=== PATIENT | male | born 1960 | race American Indian/Alaskan Native ===

== ENCOUNTER 2016-12-14 11:09 | Day surgery (SDC) | payer OTHER ==
[2016-12-14 12:14] LABS: INR 1.18 (0.87-1.13)
[2016-12-14 12:15] LABS: Partial Thromboplastin Time 41.5 Sec. (24.2-36.6)
[2016-12-14 12:26] VITALS: BP 105/59
== END 2016-12-14 14:00 | disposition home or self-care (01) ==
LOC: CATHLABREC 11:09 → EDSTATUS 12:00 → CATHLABREC 14:00
DX: L98.8 Other specified disorders of the skin and subcutaneous tissue (principal); Z53.8 Procedure and treatment not carried out for other reasons
CPT/HCPCS: 36415; 76604; 85610; 85730